=== PATIENT | female | born 1980 | race Caucasian/White ===

== ENCOUNTER 2018-01-21 07:58 | Outpatient (CLI) | payer OTHER | END 2018-01-21 08:02 | disposition home or self-care (01) | LOC: SONOGRAMA 07:58 | DX: E04.2 Nontoxic multinodular goiter (principal) ==

== ENCOUNTER 2022-02-22 06:25 | Day surgery (SDC) | payer OTHER ==
[~2022-02-22] VITALS: Ht 167.6 cm; Wt 140.6 kg
[~2022-02-22 06:25] MED LIST: ADULT LOW DOSE81 M1 PO; OMEGA 3 1,0001 EACH PO; OMEPRAZ PO; SYNTHROID175 MCG PO; VITAMIN B PO; VITAMIN C PO
[2022-02-22] MEDS ORDERED: PERCOCET 5-3251 EACH PO (11:08)
== END 2022-02-22 14:10 | disposition home or self-care (01) ==
LOC: CIR.AMB 06:25
PROVIDERS: ATTEND Surgery
DX: D35.1 Benign neoplasm of parathyroid gland (principal); E21.0 Primary hyperparathyroidism; Z20.822 Contact with and (suspected) exposure to COVID-19; Z88.0 Allergy status to penicillin; I10 Essential (primary) hypertension; J45.909 Unspecified asthma, uncomplicated; Z86.16 Personal history of COVID-19; E03.9 Hypothyroidism, unspecified; Z79.82 Long term (current) use of aspirin; K21.9 Gastro-esophageal reflux disease without esophagitis